=== PATIENT | male | born 1950 | race Two or more races ===

== ENCOUNTER 2016-09-26 09:20 | Day surgery (SDC) | payer MEDICARE, OTHER ==
[~2016-09-26 09:20] MED LIST: CEFAZOLIN SODIUM 2 GRAM PREMIX 100 ML IV ONE; CEFAZOLIN SODIUM 2 GRAM PREMIX 2 G in Premix (D5W) 100 ml 1 EACH IV PRN; IV START KIT ONE; LACTATED RINGERS 1,000 ML IV SCH; LACTATED RINGERS 1,000 ML ONE; LIDOCAINE 1% 2 ML VIAL ID PRN
[2016-09-26] MEDS ORDERED: LIDOCAINE 1% (PRES FREE) 30 ML VIAL ONE (11:15)
[2016-09-26] MEDS ORDERED: BUPIVACAINE 0.5% W/EPI SDV 30 ML VIAL ONE (11:15)
[2016-09-26] MEDS ORDERED: IV START KIT ONE (11:23)
[2016-09-26] MEDS ORDERED: MIDAZOLAM HCL 1 MG/ML 2ML VIAL ONE (12:03)
[2016-09-26] MEDS ORDERED: LIDOCAINE 2% (PRES FREE) 5 ML VIAL ONE (12:03)
[2016-09-26] MEDS ORDERED: PROPOFOL 20 ML IV ONE ×2 (12:03→12:09)
[2016-09-26] MEDS ORDERED: FENTANYL 100 MCG/2 ML VIAL ONE (12:03)
--- NOTE | 2016-09-26 12:23 | PCMBPN ---
Brief Post Op Note: Date of Procedure: 09/26/16 Preoperative Diagnosis: 1. Back mass Postoperative Diagnosis: 1. Same Procedure: Excision back mass Surgeon: Sarah Mcclure MD Assist:Awilda Gottlieb Anesthesia: GETA Findings: see dictation Condition: stable Complications: none IV Fluids: see anesthesia report Urine Output: not recorded Estimated Blood Loss: 15 mLs Tourniquet Time: N/A Specimens: back mass Implants: n/a Drains: [N/A]
[2016-09-26] MEDS ORDERED: ONDANSETRON 4 MG/2ML 2 ML VIAL IV PRN (12:50)
[2016-09-26] MEDS ORDERED: HYDROMORPHONE HCL 1 MG/ML SYRINGE IV PRN (12:50)
[2016-09-26] MEDS ORDERED: HYDROCODONE /APAP 2.5 MG/108 MG PER 5 ML UDCUP GT PRN (12:50)
[2016-09-26] MEDS ORDERED: SODIUM CHLORIDE 0.9% 1,000 ML IV SCH (12:50)
--- NOTE | 2016-09-27 10:44 | OP ---
JESSICA WEI [id number] : 1950 DATE OF SERVICE: September 26, 2016 PREOPERATIVE DIAGNOSIS: Back mass. POSTOPERATIVE DIAGNOSIS: Back mass. PROCEDURE PERFORMED: EXCISION OF SUBCUTANEOUS BACK MASS LESS THAN 3 CM. ANESTHESIA: Monitored anesthesia care with local anesthetic. SURGEON: Sarah Mcclure M.D. FELTING MACHINE OPERATOR HELPER: Romy EllisSKristina FINDINGS: A subcutaneous mass consistent with an epidermal inclusion cyst about 3 cm in diameter. TECHNIQUE: The patient was brought back to the operating room, placed prone in a monitored anesthesia care setting with local anesthetic. The back was prepped and draped in sterile surgical fashion and a local anesthetic was placed. While he was under sedation, he had a little bit of movement but was relaxed. After local anesthetic was placed and he was comfortable again, an incision was made vertically over the mass. Scissors were used to cut the mass out from the surrounding tissue taken in whole actually. We ended up getting into the cavity and ended up being a cyst and some of the cyst material came out of it. I did excise some of the skin, an ellipse of it to try to get the pit of the mass out with it, and I excised the whole wall to make sure that this would not come back. Once everything was excised, I used electrocautery for hemostasis and then I irrigated the cavity and closed the deep dermis with #3-0 Vicryl and closed the skin incision with a running #4-0 Monocryl. SteriStrips were applied and the patient was awakened and returned to recovery room in stable condition. All needle, instrument and sponge counts were correct at the end of the case.
--- NOTE | 2016-09-29 11:37 | SURGPATH ---
[facility] [address] [place] [id number] Patient Name: JESSICA WEI MR#: [id number] : 1950 Gender: M Specimen #: [id number] Collected: 09/27/2016 Received: 09/28/2016 Reported: 09/29/2016 Submitting Phys: GRADY TERAN Copy To Phys: MAGALI VILLAR [facility] Clinical History / Pre-Operative Diagnosis: BACK MASS Specimen Source / Surgical Procedure Performed: BACK MASS Interpretation: BACK MASS, EXCISION: - EPIDERMAL CYST Electronically Signed Out Neo Cruz M.D. Gross Description: The specimen is received in a formalin filled container labeled with the patient's name and "back mass". A disrupted cyst is 3.5 x 3.5 x 2.5 cm. The cyst has a thin wall and the lumen contains a friable material. A single credit and collections representative section is submitted in one cassette. Joey Bergeron PSally Microscopic Description: Microscopic performed. 1: [id number] L72.0
== END 2016-09-26 14:20 | disposition home or self-care (01) ==
LOC: SDC 09:20
PROVIDERS: ATTEND Surgery
PROC: 0JQ70ZZ Repair Back Subcutaneous Tissue and Fascia, Open Approach (ICD-10-PCS; principal; 2016-09-26)
PROC: 0HB6XZX Excision of Back Skin, External Approach, Diagnostic (ICD-10-PCS; 2016-09-26)
DX: L72.0 Epidermal cyst (principal); I95.9 Hypotension, unspecified; E03.9 Hypothyroidism, unspecified; Z79.84 Long term (current) use of oral hypoglycemic drugs; Z79.2 Long term (current) use of antibiotics; Z79.899 Other long term (current) drug therapy
CPT/HCPCS: 11404; 12032; J2001; J7120; J0690